=== PATIENT | male | born 1945 | race Caucasian/White ===

== ENCOUNTER → 2017-01-02 | Outpatient (CLI) | payer MEDICARE ==
[2017-01-02 14:27] LABS: ALT 75 U/L (21-72); AST 67 U/L (17-59); Alkaline Phosphatase 87 U/L (38-126); Anion Gap 13 mmol/L; Blood Urea Nitrogen 16 mg/dL (9-20); Calcium 9.1 mg/dL (8.4-10.2); Carbon Dioxide 20 mmol/L (22-30); Chloride 107 mmol/L (98-107); Cholesterol 120 mg/dL (<200); Glucose 135 mg/dL (74-99); HDL Cholesterol 42 mg/dL (40-60); Non-African American GFR(MDRD) >60 (>60 ml/min/1.73 sqM); Potassium 3.7 mmol/L (3.5-5.1); Sodium 140 mmol/L (137-145); Total Bilirubin 1.6 mg/dL (0.2-1.3); Total Protein 7.4 g/dL (6.3-8.2); Triglycerides 150 mg/dL (<150)
[2017-01-02 14:29] LABS: Basophils % (A) 0 %; CH 32.7; CHCM 35.9; Eosinophils # (A) 0.2 k/uL (0-0.7); Eosinophils % (A) 3 %; HCT 40.4 % (39.0-53.0); HDW 3.13; HGB 14.6 gm/dL (13.0-17.5); Luc # (Auto) 0.27; Luc % (Auto) 4; Lymphocytes # (A) 1.4 k/uL (1.0-4.8); Lymphocytes % (A) 21 %; MCH 33.3 pg (25.0-35.0); MCHC 36.3 g/dL (31.0-37.0); MCV 91.8 fL (80.0-100.0); Mean Platelet Volume 7.5; Monocytes # (A) 0.4 k/uL (0-1.0); Monocytes % (A) 6 %; Neutrophils # (A) 4.5 k/uL (1.3-7.7); Neutrophils % (A) 66 %; RDW 14.8 % (11.5-15.5); WBC 6.8 k/uL (3.8-10.6); WBC (Perox) 7.04
[2017-01-02 14:36] LABS: INR 1.2 (<1.1); Prothrombin Time 11.8 sec (9.0-12.0)
== END | disposition home or self-care (01) ==
LOC: LABWHC1 13:44
PROVIDERS: ATTEND Internal Medicine Gastroenterology
DX: E78.5 Hyperlipidemia, unspecified (principal); K74.60 Unspecified cirrhosis of liver; I73.9 Peripheral vascular disease, unspecified
CPT/HCPCS: 36415; 80053; 80061; 82105; 85025; 85610

== ENCOUNTER 2017-02-26 08:10 | Day surgery (SDC) | payer MEDICARE ==
[2017-02-20 14:55] VITALS: BMI 24.7
[~2017-02-26 08:10] MED LIST: ALPRAZolam 0.25 MG TAB PO PRN; ASPIRIN 325 MG TAB PO STA; SODIUM CHLORIDE 0.9% 1,000 ML in EMPTY BAG 1 BAG IV ONE
[2017-02-26] MEDS ORDERED: SODIUM CHLORIDE 0.9% 1,000 ML IV ONE (08:30)
[2017-02-26] MEDS ORDERED: ASPIRIN 81 MG CHEW ONE (08:39)
[2017-02-26 08:40] LABS: Glucose,Whole Blood 132 mg/dL (75-99)
[2017-02-26 08:54] LABS: Basophils % (A) 0 %; CH 32.3; CHCM 35.6; Eosinophils # (A) 0.2 k/uL (0-0.7); Eosinophils % (A) 3 %; HCT 40.8 % (39.0-53.0); HDW 2.93; HGB 14.7 gm/dL (13.0-17.5); Luc # (Auto) 0.14; Luc % (Auto) 2; Lymphocytes # (A) 1.3 k/uL (1.0-4.8); Lymphocytes % (A) 21 %; MCH 32.9 pg (25.0-35.0); MCHC 36.1 g/dL (31.0-37.0); MCV 91.2 fL (80.0-100.0); Monocytes # (A) 0.4 k/uL (0-1.0); Monocytes % (A) 7 %; Neutrophils # (A) 4.2 k/uL (1.3-7.7); Neutrophils % (A) 67 %; RBC 4.47 m/uL (4.30-5.90); RDW 13.9 % (11.5-15.5); WBC 6.2 k/uL (3.8-10.6); WBC (Perox) 6.37
[2017-02-26 09:04] LABS: Anion Gap 11 mmol/L; Blood Urea Nitrogen 16 mg/dL (9-20); Calcium 8.9 mg/dL (8.4-10.2); Carbon Dioxide 21 mmol/L (22-30); Chloride 109 mmol/L (98-107); Glucose 133 mg/dL (74-99); Non-African American GFR(MDRD) >60 (>60 ml/min/1.73 sqM); Potassium 3.7 mmol/L (3.5-5.1); Sodium 141 mmol/L (137-145)
[2017-02-26] MEDS: MIDAZOLAM 2 MG/2 ML VIAL IV ONE ×2 (11:38→11:43)
[2017-02-26] MEDS ORDERED: LIDOCAINE 2% INJ 20 MG/ML SQ ONE (11:40)
[2017-02-26] MEDS ORDERED: HEPARIN SODIUM 1,000 UN/ML (10ML VL) IV ONE (11:50)
[2017-02-26] MEDS ORDERED: CLOPIDOGREL 75 MG TAB PO ONE (12:25)
[2017-02-26] MEDS ORDERED: ENALAPRILAT 1.25 MG/ML 1 ML VIAL IV ONE (12:37)
[2017-02-26] MEDS ORDERED: hydrALAZINE HCL 20 MG/ML 1 ML VIAL IV ONE (12:41)
[2017-02-26] MEDS ORDERED: PROTAMINE SULFATE 10 MG/ML 5 ML VIAL IV ONE (12:44)
[2017-02-26] MEDS ORDERED: SODIUM CHLORIDE 0.9% 1,000 ML IV SCH (12:45)
[2017-02-26] MEDS ORDERED: IODIXANOL 320 MG/ML 100 ML INTRAARTER ONE (12:50)
--- NOTE | 2017-02-26 13:32 | IR ---
Fluoroscopy HISTORY: Subclavian artery stenosis 14.4 minutes fluoroscopy time supplied to the referring clinician. 201 intraoperative C-arm images d ocument the procedure. See dictated report from cardiology.
[2017-02-26 17:15] LABS: Glucose,Whole Blood 179 mg/dL (75-99)
[2017-02-26 21:09] LABS: Glucose,Whole Blood 112 mg/dL (75-99)
[2017-02-26] MEDS ORDERED: HYDROcodone/APAP 7.5-325MG 1 EACH TAB PO PRN (23:33)
[2017-02-26] MEDS ORDERED: ZOLPIDEM 10 MG TAB PO SCH (23:45)
[2017-02-26] MEDS ORDERED: ATORVASTATIN 40 MG TAB PO SCH (23:45)
[2017-02-27] MEDS: hydrALAZINE HCL 20 MG/ML 1 ML VIAL IVP PRN ×2 (00:12→03:27)
[2017-02-27 03:36] LABS: Basophils % (A) 0 %; CH 33.4; CHCM 35.6; Eosinophils # (A) 0.2 k/uL (0-0.7); Eosinophils % (A) 2 %; HCT 44.2 % (39.0-53.0); HDW 2.92; HGB 14.5 gm/dL (13.0-17.5); Luc # (Auto) 0.14; Luc % (Auto) 2; Lymphocytes # (A) 1.1 k/uL (1.0-4.8); Lymphocytes % (A) 13 %; MCHC 32.9 g/dL (31.0-37.0); MCV 94.4 fL (80.0-100.0); Monocytes # (A) 0.6 k/uL (0-1.0); Monocytes % (A) 7 %; Neutrophils # (A) 6.3 k/uL (1.3-7.7); Neutrophils % (A) 76 %; RBC 4.68 m/uL (4.30-5.90); WBC 8.2 k/uL (3.8-10.6); WBC (Perox) 8.41
[2017-02-27 03:42] LABS: Non-African American GFR(MDRD) >60 (>60 ml/min/1.73 sqM)
[2017-02-27 04:20] LABS: Manual Review Performed
[2017-02-27 05:46] LABS: Glucose,Whole Blood 150 mg/dL (75-99)
[2017-02-27 06:15] LABS: Anion Gap 14 mmol/L; Blood Urea Nitrogen 18 mg/dL (9-20); Calcium 8.8 mg/dL (8.4-10.2); Carbon Dioxide 17 mmol/L (22-30); Chloride 110 mmol/L (98-107); Glucose 117 mg/dL (74-99); Potassium 3.5 mmol/L (3.5-5.1); Sodium 141 mmol/L (137-145)
[2017-02-27 08:20] VITALS: RESP 18
[2017-02-27] MEDS ORDERED: LOSARTAN 50 MG TAB PO SCH (09:00)
[2017-02-27] MEDS ORDERED: MULTIVITAMINS, THERA 1 EACH TAB PO SCH (09:00)
[2017-02-27] MEDS ORDERED: ASPIRIN 81 MG CHEW PO SCH (09:00)
[2017-02-27] MEDS ORDERED: NON-FORMULARY DRUG (Canagliflozin [Invokana] 300 MG) PO SCH (09:00)
[2017-02-27] MEDS ORDERED: NON-FORMULARY DRUG (Metformin Hcl [Glucophage] 1,000 MG) PO SCH (09:00)
[2017-02-27] MEDS ORDERED: CHOLECALCIFEROL 1,000 UNIT TAB PO SCH (09:00)
[2017-02-27] MEDS ORDERED: CLOPIDOGREL 75 MG TAB PO SCH (09:00)
--- NOTE | 2017-02-27 09:51 | US ---
EXAMINATION TYPE: US lower ext pseudo artery RT DATE OF EXAM: 02/27/2017 COMPARISON: NONE CLINICAL HISTORY: r/o pseudoaneurysm. Right groin pain EXAM PERFORMED: Grayscale and color Doppler duplex imaging performed of the groin, post cardiac harriet ter to assess for pseudoaneurysm. SIDE PERFORMED: Right Color and Waveform Doppler performed to assess for the presence of pseudoaneurysm; Is there ultrasound evidence of a pseudoaneurysm: no Is there evidence of AV shunting: no Is there a fluid collection present: no Heart cath less than 24 hours previous, patient has pain, swelling and bruising at right groin. IMPRESSION: No evident pseudoaneurysm or arteriovenous fistula
[2017-02-27 11:46] LABS: Glucose,Whole Blood 166 mg/dL (75-99)
[2017-02-27 12:01] VITALS: BP 146/69; PULSE 85; TEMP 96.6
--- NOTE | 2017-02-27 13:06 | P.DS ---
Providers Date of admission: February 262016 Attending physician: Thad Mayorga Primary care physician: [place] Hospital Course: This is a pleasant 72-year-old gentleman who was diagnosed with a steal syndrome. He was admitted to the hospital yesterday and underwent an aortic arch angiogram along with selective left subclavian angiogram along with successful stenting of the proximal left subclavian artery using balloon expandable stent with a good angiographic results. The procedure was complicated by right groin hematoma after the failure of groin closure device. The hematoma was reduced completely with compression. Subsequently he underwent an ultrasound of the right groin which showed no evidence of pseudoaneurysm or DVT. The patient is going to be discharged home on dual antiplatelet therapy and statin and I'll follow-up with the patient next week in the office. Plan - Discharge Summary New Discharge Prescriptions: New Clopidogrel [Plavix] 75 mg PO DAILY #30 tab Continue Cholecalciferol (Vitamin D3) [Vitamin D3] 2,000 unit PO DAILY Zolpidem [Ambien] 10 mg PO HS HYDROcodone/APAP 7.5-325MG [[place] 7.5-325] 1 tab PO TID PRN PRN Reason: NEUROPATHY PAIN Aspirin [Adult Low Dose Aspirin EC] 81 mg PO DAILY Irbesartan [Avapro] 150 mg PO DAILY Atorvastatin [Lipitor] 40 mg PO HS metFORMIN HCL [Glucophage] 1,000 mg PO BID Canagliflozin [Invokana] 300 mg PO DAILY Prostaleaf (Unsure Dose) 1 tab PO BID Multivitamin [Men's Multi-Vitamin] 1 each PO DAILY Discharge Medication List Aspirin [Adult Low Dose Aspirin EC] 81 mg PO DAILY 02/20/17 [History] Atorvastatin [Lipitor] 40 mg PO HS 02/20/17 [History] Canagliflozin [Invokana] 300 mg PO DAILY 02/20/17 [History] Cholecalciferol (Vitamin D3) [Vitamin D3] 2,000 unit PO DAILY 02/20/17 [History] HYDROcodone/APAP 7.5-325MG [[place] 7.5-325] 1 tab PO TID PRN 02/20/17 [History] Irbesartan [Avapro] 150 mg PO DAILY 02/20/17 [History] Multivitamin [Men's Multi-Vitamin] 1 each PO DAILY 02/20/17 [History] Prostaleaf (Unsure Dose) 1 tab PO BID 02/20/17 [History] Zolpidem [Ambien] 10 mg PO HS 02/20/17 [History] metFORMIN HCL [Glucophage] 1,000 mg PO BID 02/20/17 [History] Clopidogrel [Plavix] 75 mg PO DAILY #30 tab 02/27/17 [Rx] Follow up Appointment(s)/Referral(s): Thad Mayorga MD [STAFF PHYSICIAN] - 1 Week (will call with appointment date and time) Patient Instructions/Handouts: *Surgery [facility] - After Heart Catheterization - Wood Molder Instructions
--- NOTE | 2017-02-27 14:05 | AN ---
AORTIC ARCH AND LEFT SUBCLAVIAN STENTING: DATE OF SERVICE: 02/26/2017 PERFORMING PHYSICIAN: TRE WILLIAM MD, CARPENTER PROCEDURE PERFORMED: 1. An aortic arch angiogram. 2. Selective left subclavian angiogram. 3. Successful stenting of the proximal left subclavian using 8.0 x 19 mm balloon expandible stent with a good angiographic results. INDICATION: This is a pleasant 71-year-old gentleman who sees Dr. Khurram Cronin as an outpatient who was thought to have reversal flow in the left vertebral artery by Duplex study. The patient was found to have very diminished left radial pulse with left arm discomfort. Severe left subclavian stenosis was suspected and the patient was brought today to undergo an angiogram. APPROACH: Right common femoral artery. COMPLICATION: None. LEVEL OF SEDATION: Moderate. PROCEDURE DESCRIPTION: After obtaining an informed consent, the patient was brought to the Cardiac Manager Patient. The right common femoral artery was cannulated using micropuncture technique. The micropuncture wire passed easily. Then I placed a 6 [place] sheath in the right common femoral artery. Subsequently, I did an aortic arch angiogram using 5 [place] Pigtail catheter. After that, I did selective left subclavian angiograph using 5 [place] Juan Daniel Right catheter. Then I did intervene on the left subclavian. Please see a separate paragraph for that. SELECTIVE PERIPHERAL ANGIOGRAM: 1. The aortic arch is a type 1 arch and seems to be angiographically normal without dissection or aneurysmal dilatation. 2. The subclavian has fairly tight lesion in the proximal portion, seems to be eccentric and seems to be in the range of 80% to 90%. 3. Left subclavian stenting anticoagulation was initiated using heparin and the patient was given a weight-based heparin of a total of 8,000 units. Subsequently, I did exchange my 11 cm sheath into a 90 cm sheath using an 0.035 Advantage wire which was advanced through the distal left subclavian. Subsequently, I did CHAIN BUILDER ballooning 6.0 x 20 mm balloon. After that, I deployed 8.0 x 19 mm stent where the stent was positioned under fluoroscopic guidance and deployed under it nominal pressure. The following angiograph showed excellent angiographic results and the patient has excellent left radial pulse by the end of the procedure. POSTPROCEDURE MANAGEMENT: 1. Dual antiplatelet therapy. 2. Risk factor modifications. 3. Follow up with the patient. [place]
== END 2017-02-27 13:45 | disposition home or self-care (01) ==
LOC: CATHCVL 08:10 → 6SEL 12:44 → CATHCVL 02-27 13:45
PROVIDERS: ATTEND Internal Medicine Interventional Cardiology
DX: G45.8 Other transient cerebral ischemic attacks and related syndromes (principal); L76.32 Postprocedural hematoma of skin and subcutaneous tissue following other procedure; I10 Essential (primary) hypertension; E78.5 Hyperlipidemia, unspecified; I73.9 Peripheral vascular disease, unspecified; E11.40 Type 2 diabetes mellitus with diabetic neuropathy, unspecified; K74.60 Unspecified cirrhosis of liver; G47.30 Sleep apnea, unspecified; Z87.891 Personal history of nicotine dependence; Z79.899 Other long term (current) drug therapy; Z79.84 Long term (current) use of oral hypoglycemic drugs; Z79.82 Long term (current) use of aspirin
CPT/HCPCS: 80048; 85025; 93975

== ENCOUNTER → 2017-06-04 | Outpatient (CLI) | payer MEDICARE ==
[2017-06-05 12:14] LABS: Alternaria alternata IgE <0.35 kU/L (<0.35); Asperg. fumagatus IgE <0.35 kU/L (<0.35); Asperg. fumagatus IgE Class CLASS 0; Aureo. pullulans IgE <0.35 kU/L (<0.35); Birch(Com.Silvr) IgE Class CLASS 0; Candida albicans IgE Class CLASS 0; Clad herbarum IgE <0.35 kU/L (<0.35); Clad herbarum IgE Class CLASS 0; Cow's Milk IgE Class CLASS 0; Egg White IgE <0.35 kU/L (<0.35); Epicoccum purpurascens Class CLASS 0; Epicoccum purpurascens IgE <0.35 kU/L (<0.35); Maple (Box Elder) IgE <0.35 kU/L (<0.35); Maple (Box Elder) IgE Class CLASS 0; Mucor racemosus IgE <0.35 kU/L (<0.35); Mucor racemosus IgE Class CLASS 0; Oak IgE <0.35 kU/L (<0.35); Peanut IgE <0.35 kU/L (<0.35); Potato IgE <0.35 kU/L (<0.35); Potato IgE Class CLASS 0; Rhizopus nigricans IgE <0.35 kU/L (<0.35); Rhizopus nigricans IgE Class CLASS 0; S.rostrata/Helminth Class CLASS 0; S.rostrata/Helminth IgE <0.35 kU/L (<0.35); Soybean IgE <0.35 kU/L (<0.35); Sycamore(Mpl.Lf) IgE <0.35 kU/L (<0.35); Sycamore(Mpl.Lf) IgE Class CLASS 0; Walnut Tree IgE <0.35 kU/L (<0.35); White Ash IgE Class CLASS 0
[2017-06-05 12:15] LABS: Cat Epith & Dander IgE <0.35 kU/L (<0.35); Cat Epith & Dander IgE Class CLASS 0; Com. Pigweed IgE <0.35 kU/L (<0.35); Com. Pigweed IgE Class CLASS 0; Common Ragweed IgE Class CLASS 0; Dermato. Pteronyssinus Class CLASS 0; Dermato. Pteronyssinus IgE <0.35 kU/L (<0.35); Dermato. farinae IgE <0.35 kU/L (<0.35); Dermato. farinae IgE Class CLASS 0; English Plantain IgE Class CLASS 0; Johnson Grass IgE Class CLASS 0; Lamb's Quarter IgE <0.35 kU/L (<0.35); Lamb's Quarter IgE Class CLASS 0; Timothy Grass IgE <0.35 kU/L (<0.35); Timothy Grass IgE Class CLASS 0
== END | disposition home or self-care (01) ==
LOC: LABWHC1 14:33
PROVIDERS: ATTEND Otolaryngology
DX: J30.89 Other allergic rhinitis (principal)
CPT/HCPCS: 36415; 86003

== ENCOUNTER → 2017-12-16 | Outpatient (CLI) | payer MEDICARE ==
[2017-12-16 15:25] LABS: INR 1.1 (<1.2); Prothrombin Time 10.8 sec (9.0-12.0)
[2017-12-16 15:28] LABS: ALT 69 U/L (21-72); AST 42 U/L (17-59); Albumin 4.6 g/dL (3.5-5.0); Alkaline Phosphatase 69 U/L (38-126); Anion Gap 15 mmol/L; Blood Urea Nitrogen 25 mg/dL (9-20); Carbon Dioxide 25 mmol/L (22-30); Chloride 102 mmol/L (98-107); Glucose 166 mg/dL (74-99); Potassium 4.5 mmol/L (3.5-5.1); Sodium 142 mmol/L (137-145); Total Bilirubin 1.5 mg/dL (0.2-1.3); Total Protein 7.3 g/dL (6.3-8.2)
--- NOTE | 2017-12-16 15:41 | US ---
EXAMINATION TYPE: US liver DATE OF EXAM: 12/16/2017 COMPARISON: NONE CLINICAL HISTORY: Cirrhosis of liver K74.60. Cirrhosis of liver EXAM MEASUREMENTS: Liver Length: 13.1 cm Gallbladder Wall: 0.2 cm CBD: 0.3 cm Right Kidney: 10.1 x 4.9 x 5.4 cm Technically difficult and limited study due to large amount of overlying bowel gas Pancreas: visualized portions appear hyperechoic Liver: heterogeneous without any definite lesions seen at this time Gallbladder: visualized portions wnl Evidence for sonographic Blackman's sign: no CBD: visualized portions wnl Right Kidney: visualized portions wnl IMPRESSION: Diffusely heterogenous hepatic echotexture relating to the patient's known underlying his tory of hepatocellular disease. No focal hepatic lesions are identified on today's exam.
[2017-12-16 15:45] LABS: Basophils % (A) 0 %; Eosinophils # (A) 0.2 k/uL (0-0.7); Eosinophils % (A) 2 %; HCT 48.2 % (39.0-53.0); HGB 16.5 gm/dL (13.0-17.5); Lymphocytes # (A) 1.5 k/uL (1.0-4.8); Lymphocytes % (A) 15 %; MCH 31.1 pg (25.0-35.0); MCHC 34.4 g/dL (31.0-37.0); MCV 90.5 fL (80.0-100.0); Mean Platelet Volume 7.4; Monocytes # (A) 0.6 k/uL (0-1.0); Monocytes % (A) 6 %; Neutrophils # (A) 7.3 k/uL (1.3-7.7); Neutrophils % (A) 75 %; RBC 5.32 m/uL (4.30-5.90); RDW 14.3 % (11.5-15.5); WBC 9.8 k/uL (3.8-10.6)
[2017-12-16 16:13] LABS: Platelet Count 81 k/uL (150-450)
== END | disposition home or self-care (01) ==
LOC: RADUSWWP 14:21
PROVIDERS: ATTEND Internal Medicine Gastroenterology
DX: K74.60 Unspecified cirrhosis of liver (principal)
CPT/HCPCS: 36415; 76705; 80053; 82105; 85025; 85610

== ENCOUNTER → 2019-08-28 | Outpatient (CLI) | payer MEDICARE ==
--- NOTE | 2019-08-29 16:32 | US ---
EXAMINATION TYPE: US liver DATE OF EXAM: 08/28/2019 COMPARISON: US CLINICAL HISTORY: K74.60 unspec cirrhosis of liver. Cirrhosis EXAM MEASUREMENTS: Liver Length: 12.5 cm Gallbladder Wall: 0.2 cm CBD: 0.5 cm Right Kidney: 8.9 x 4.9 x 4.2 cm Pancreas: Body wnl, head and tail obscured by overlying bowel gas Liver: Lobulated contour, left lobe enlarged, right lobe small in size Gallbladder: wnl Evidence for sonographic Blackman's sign: No CBD: wnl Right Kidney: Small in size when compared to previous, otherwise appeared wnl IMPRESSION: Lobulated hepatic contour is nonspecific. Mild prominence of the left hepatic lobe.
== END | disposition home or self-care (01) ==
LOC: RADUSWWP 16:14
PROVIDERS: ATTEND Internal Medicine Gastroenterology
DX: K76.89 Other specified diseases of liver (principal)
CPT/HCPCS: 76705

== ENCOUNTER → 2020-01-28 | Outpatient (CLI) | payer MEDICARE ==
--- NOTE | 2020-01-28 15:21 | US ---
EXAMINATION TYPE: US chest DATE OF EXAM: 01/28/2020 COMPARISON: NONE CLINICAL HISTORY: J90 pleural effusion. Right chest per order TECHNIQUE: Targeted ultrasound of the posterior lower right hemithorax EXAM MEASUREMENTS: Right Pleural Effusion pocket size: 3.6 cm Right skin surface to fluid distance: 2.7 cm Right side NOT marked for possible thoracentesis outside the dept due to small fluid pocket. Pulmonologists are able to review the images in the patient?s EMR. IMPRESSIONS: Small right pleural effusion
== END | disposition home or self-care (01) ==
LOC: RADUSWWP 14:54
PROVIDERS: ATTEND Internal Medicine Critical Care Medicine
DX: J90 Pleural effusion, not elsewhere classified (principal)
CPT/HCPCS: 76604

== ENCOUNTER → 2020-02-03 | Outpatient (CLI) | payer MEDICARE | END | disposition home or self-care (01) | CPT/HCPCS: 94060; 94726; 94729 ==

== ENCOUNTER → 2020-05-02 | Outpatient (CLI) | payer MEDICARE ==
--- NOTE | 2020-05-02 16:32 | MR ---
EXAMINATION TYPE: MR brain wo/w con DATE OF EXAM: 05/02/2020 COMPARISON: NONE HISTORY: Hx of high-grade lung Cancer, F/U TECHNIQUE: Multiplanar, multisequence images of the brain and brainstem is performed without and with IV contras t, utilizing 7.5 mL intravenous Gadavist . FINDINGS: Diffusion weighted images demonstrate no evidence of a recent infarct or other diffusion ab normality. There is no worrisome extra-axial fluid collection. Diffuse ventricular and sulcal promin ence is present. Occasional tiny focus of T2 hyperintense lesion. Less than 5 distinct lesions identi fied. Midline structures demonstrate normal morphology. The craniocervical junction appears within normal limits. Post contrast images demonstrate no abnormal enhancement. The dural venous sinuses appear pa tent. The visualized sinuses are clear and the globes are intact. IMPRESSION: [id number] diffuse cerebral atrophy. No suspicious enhancing masses to suggest meta static disease to the brain noted.
== END | disposition home or self-care (01) ==
LOC: RADMRIMAIN 15:15
PROVIDERS: ATTEND Radiology Radiation Oncology
DX: G31.9 Degenerative disease of nervous system, unspecified (principal); C34.31 Malignant neoplasm of lower lobe, right bronchus or lung; Z87.891 Personal history of nicotine dependence
CPT/HCPCS: 70553; A9585

== ENCOUNTER → 2020-05-02 | Outpatient (CLI) | payer MEDICARE ==
[2020-05-03 01:07] LABS: African American GFR (CKD) 95.8 (60.0-200.0); Anion Gap 7.2 mmol/L (4.00-12.00); BUN/Creat Ratio 16.67 Ratio (12.00-20.00); Calcium 8.3 mg/dL (8.7-10.3); Carbon Dioxide 24.8 mmol/L (21.6-31.8); Magnesium 1.9 mg/dL (1.5-2.4); Non-African American GFR(CKD) 82.7 (60.0-200.0)
== END | disposition home or self-care (01) ==
LOC: LABWHC1 14:57
PROVIDERS: ATTEND Nurse Practitioner
DX: I10 Essential (primary) hypertension (principal)
CPT/HCPCS: 36415; 80048; 83735

== ENCOUNTER → 2020-06-06 | Outpatient (CLI) | payer MEDICARE ==
[2020-06-06 14:36] LABS: African American GFR (CKD) >90 (>60 ml/min/1.73 sqM); Blood Urea Nitrogen 19 mg/dL (9-20); Non-African American GFR(CKD) 84 (>60 ml/min/1.73 sqM)
--- NOTE | 2020-06-07 12:49 | CT ---
EXAMINATION TYPE: CT chest wo/w con DATE OF EXAM: 06/06/2020 COMPARISON: PET CT 01/19/[address] chest 12/30/2019. 03/12/2016 HISTORY: 75-year-old male Right lower lobe lung cancer. TECHNIQUE: Contiguous axial scanning of the chest before and after the administration of 100ml mL of Isovue 300. Coronal/sagittal reconstructions performed. CT DLP: 581.4mGycm. Automatic exposure control utilized for a dose reduction. FINDINGS: The heart is upper limits of normal in size with LAD and RCA coronary artery calcifications. No peric ardial effusion. There are normal caliber with mild atherosclerotic arch calcifications. A stent is present within the proximal left subclavian artery. The vessel is patent. Conventional vessel branching anatomy. Large caliber to the main right and left pulmonary arteries measuring up to 2.7 cm suggesting underly ing pulmonary arterial hypertension. No thoracic lymphadenopathy by CT size criteria. Nonenlarged 5 mm in the window lymph node is unchang ed. Trace right pleural effusion remains, decreased in size from 01/19/2020. Residual subpleural mass posterior right lower lobe measuring up to 2.9 cm versus 6.4 cm on 12/30/2019 . COPD changes with advanced upper lung emphysema. No consolidation or pleural effusion. Focal irregular subpleural opacity anterior left upper lobe remains unchanged, probable pleural paren chymal scarring. This was also present in 2016. 4 mm peripheral right midlung nodularity, axial image 33 appears to have been present 5 months ago bu t not clearly seen in 2016. Attention on follow-up. Small hiatal hernia. Stable 8 mm hypodensity within the right hepatic dome, probable cyst. Redemonst rated splenomegaly at 16.5 cm and be correlated clinically. Bones: Mild degenerative disc disease mid to lower thoracic spine. No osseous destructive process. IMPRESSION: 1. Decreasing size of the subpleural posterior right basilar mass, currently measuring 2.9 cm versus 6.4 cm, previously. 2. Only a trace right effusion remains, decreased from 01/19/2020. 3. A 4 mm right midlung pulmonary nodule is nonspecific, stable from 5 months ago but not clearly see n in 2016. This can be reassessed at subsequent follow-ups. 4. COPD with advanced emphysema and pulmonary arterial hypertension. 5. Small hiatal hernia and stable splenomegaly at 16.5 cm.
== END | disposition home or self-care (01) ==
LOC: RADCTMAIN 13:47
PROVIDERS: ATTEND Radiology Radiation Oncology
DX: C34.31 Malignant neoplasm of lower lobe, right bronchus or lung (principal); R91.1 Solitary pulmonary nodule; I27.21 Secondary pulmonary arterial hypertension; J43.9 Emphysema, unspecified; K44.9 Diaphragmatic hernia without obstruction or gangrene; Z87.891 Personal history of nicotine dependence
CPT/HCPCS: 82565; 84520; 71270; 36415; Q9967

== ENCOUNTER → 2020-09-08 | Outpatient (CLI) | payer MEDICARE ==
[2020-09-08 15:55] LABS: African American GFR (CKD) >90 (>60 ml/min/1.73 sqM); Blood Urea Nitrogen 15 mg/dL (9-20); Non-African American GFR(CKD) 89 (>60 ml/min/1.73 sqM)
--- NOTE | 2020-09-09 07:34 | CT ---
EXAMINATION TYPE: CT ChestAbdPelvis w con DATE OF EXAM: 09/08/2020 COMPARISON: 06/06/2020 HISTORY: Lung ca. Pt c/o SOB, painful urination. CT DLP: 1140.10 mGycm CONTRAST: CT scan of the chest, abdomen and pelvis is performed with Oral Contrast and with IV Contrast, patien t injected with 100 mL of Isovue 300. CT Chest: LUNGS: Moderate right-sided pleural effusion is new. There is a new irregular infiltrates right lower lobe which may reflect recurrent mass. Neoplasm is not excluded. Coarse markings are seen about the right hilum could reflect post radiation therapy change. Severe emphysematous changes noted particula rly within the right upper lobe. There is biapical scarring identified. No additional nodules or mass es identified at this time. MEDIASTINUM: Thoracic aorta is of normal caliber. The heart is mildly enlarged. No evidence for me diastinal mass or adenopathy. HILAR STRUCTURES: No evidence for mass. No hilar adenopathy is appreciated. OTHER: No significant abnormality. CONTRAST CT ABDOMEN AND PELVIS FINDINGS: LIVER/GB: No calcified gallstones. Small cyst near the dome of the liver measuring [address] tr ee is of normal caliber. PANCREAS: No inflammation. No distinct mass. SPLEEN: The spleen is enlarged at 16.9 cm craniocaudal dimension. No lesion seen. ADRENALS: No nodule. No thickening. KIDNEYS/BLADDER: No hydronephrosis. No nephrolithiasis. No disctinct renal mass. BOWEL: Normal appendix. Normal bowel caliber. No inflammation. GENITAL ORGANS: No gross abnormality. LYMPH NODES: No greater than 1cm abdominal or pelvic lymph nodes are appreciated. AORTA: No significant abnormality. OSSEOUS STRUCTURES: No significant abnormality is seen. OTHER: Small amount of free fluid is seen within the pelvis. Fat-containing right inguinal hernia wit h a small amount of fluid. IMPRESSION: 1. Moderate to new right-sided pleural effusion with irregular infiltrate right lower lobe could refl ect a pneumonia or aspiration pneumonia however a recurrent mass is not excluded. Correlate with PET/ CT.
== END | disposition home or self-care (01) ==
LOC: RADCTMAIN 14:59
PROVIDERS: ATTEND Internal Medicine Hematology & Oncology
DX: C34.31 Malignant neoplasm of lower lobe, right bronchus or lung (principal); R06.02 Shortness of breath; R10.84 Generalized abdominal pain
CPT/HCPCS: 82565; 84520; 71260; 74177; 36415; Q9967

== ENCOUNTER → 2020-09-16 | Outpatient (CLI) | payer MEDICARE ==
--- NOTE | 2020-09-18 08:50 | PE ---
EXAMINATION TYPE: PET CT fusion skull to thigh DATE OF EXAM: 09/16/2020 COMPARISON: Most recent CT September 08, 2020. Prior outside PET/CT January 19, 2020. HISTORY: Right-sided lung cancer diagnosed December 2019 treated with chemotherapy and radiation treatmen t. TECHNIQUE: Following the intravenous administration of 9.95 mCi of F-18 FDG, whole body images are p erformed from the skull base to the midthigh. Images are reviewed on the computer in the coronal, ax ial, and sagittal planes. Reconstructed rotating images are created on independent workstation and r eviewed on the computer. A localization and attenuation correction CT is performed in conjunction w ith the PET scan. Blood glucose level equals 117. SCAN: Subsequent Scan FINDINGS: SKULL BASE AND NECK: No new areas of abnormal hypermetabolic uptake. CHEST, MEDIASTINUM, AND HILAR REGION: Redemonstration of ftvkz-jk-smbjswax size right pleural fluid c ollection which does not completely layer dependently larger from prior PET/CT. There is associated a telectasis and/or consolidation in the right hilar region extending inferiorly redemonstrated. No breezy picious hypermetabolic uptake identified to suggest active neoplastic recurrence. Prior focal right a nterior lower lobe hypermetabolic neoplasm likely corresponds to more rounded 2.8 x 1.7 cm structure no axial image 116 current study. No abnormal hypermetabolic uptake at this level on current study. ABDOMEN AND PELVIS: No areas of abnormal hypermetabolic uptake. OSSEOUS STRUCTURES: No areas of abnormal hypermetabolic uptake. OTHER CT: A stent in the left subclavian artery is present. Persistent cardiomegaly with coronary art fiona calcification. Asymmetric right-sided gynecomastia noted. Splenomegaly redemonstrated. Moderate amount of free fluid in pelvis again seen. No abnormal hypermet abolic uptake. Mildly enlarged prostate consistent with BPH. IMPRESSION: Persistent small to moderate size right pleural fluid collection. Associated atelectasis and/or consolidation. No new or residual hypermetabolic uptake to suggest active malignancy. Findings consistent with positive treatment response.
== END ==
LOC: RADPETMAIN 10:52
PROVIDERS: ATTEND Radiology Radiation Oncology
DX: C34.31 Malignant neoplasm of lower lobe, right bronchus or lung (principal)
CPT/HCPCS: 78815; A9552

== ENCOUNTER 2020-10-11 08:47 | Day surgery (SDC) | payer MEDICARE ==
[2020-10-11 09:47] LABS: Mean Platelet Volume 7.9
[2020-10-11 09:48] LABS: INR 1.1 (<1.2); Prothrombin Time 11.9 sec (9.0-12.0)
[2020-10-11 09:49] LABS: Platelet Count 79 k/uL (150-450)
[2020-10-11 10:44] VITALS: TEMP 98.1
[2020-10-11 10:54] VITALS: RESP 18
--- NOTE | 2020-10-11 11:40 | XR ---
EXAMINATION TYPE: XR chest 1V DATE OF EXAM: 10/11/2020 COMPARISON: 06/25/2011 INDICATION: Right thoracentesis TECHNIQUE: Single frontal view of the chest is obtained. FINDINGS: The heart size is normal. The pulmonary vasculature is normal. Right perihilar increased lung markings are present. Minimal right pleural effusion remains present. There may be some scarring in the right upper lobe. No pneumothorax is evident post thoracentesis. IMPRESSION: 1. No pneumothorax post right thoracentesis. 2. Residual right pleural effusion. 3. Mild increased lung markings right perihilar region.
[2020-10-11 11:58] VITALS: PULSE 94
[2020-10-11 11:59] VITALS: BP 132/72
--- NOTE | 2020-10-11 14:46 | US ---
EXAMINATION TYPE: US thoracentesis DATE OF EXAM: 10/11/2020 COMPARISON: PET/CT 09/16/2020 HISTORY: Pleural effusion. FINDINGS: Maximal barrier technique was utilized. The skin overlying a suitable pocket of fluid was localized and the overlying skin prepped and draped. Lidocaine was used for local anesthesia. Ultras ound was used with sterile technique. A 5 Polish catheter over guide needle was advanced into the pl eural fluid collection using ultrasound guidance the catheter advanced, needle removed. Approximatel y 0.7 liter(s) of serous fluid was removed. Catheter was withdrawn and hemostasis achieved. There i s no immediate complication. The patient discharged in stable condition without complication. Specim en obtained for laboratory analysis IMPRESSION: STATUS POST ULTRASOUND GUIDED THORACENTESIS, POST PROCEDURE CHEST X-RAY PENDING. THIS [place] OCEDURE WAS PERFORMED BY THE UNDERSIGNED.
== END 2020-10-11 11:45 | disposition home or self-care (01) ==
LOC: RADPROMAIN 08:47
PROVIDERS: ATTEND Internal Medicine Hematology & Oncology
DX: J90 Pleural effusion, not elsewhere classified (principal); C34.90 Malignant neoplasm of unspecified part of unspecified bronchus or lung; Z85.828 Personal history of other malignant neoplasm of skin
CPT/HCPCS: 32555; 36415; 71045; 82947; 85049; 85610; 88108; 88305

== ENCOUNTER → 2020-12-21 | Outpatient (CLI) | payer MEDICARE ==
--- NOTE | 2020-12-22 05:15 | MR ---
EXAMINATION TYPE: MR brain wo/w con DATE OF EXAM: 12/21/2020 COMPARISON: 05/02/2020 HISTORY: Lung cancer, altered mental status CONTRAST: Standard multiplanar, multisequence MRI departmental protocol utilizing 6.5 mL intravenous Gadavist g adolinium contrast. There is cerebral cortical atrophy. There is no mass effect nor midline shift. Diffusion images show no evidence of acute infarct. The brainstem is intact. Grade white matter structures have fairly norm al signal pattern. I see no evidence of any significant cerebral edema. There is minimal thinning of the corpus callosum. Sella turcica appears normal. The contrast images show no pathologic enhancement . There is normal enhancement of the venous sinuses. IMPRESSION: There is mild cerebral atrophy. No acute intracranial abnormality. No adverse change compared to old exam.
== END | disposition home or self-care (01) ==
LOC: RADMRIMAIN 13:07
PROVIDERS: ATTEND Internal Medicine Hematology & Oncology
DX: C34.90 Malignant neoplasm of unspecified part of unspecified bronchus or lung (principal); G31.9 Degenerative disease of nervous system, unspecified
CPT/HCPCS: 70553; A9585

== ENCOUNTER → 2020-12-23 | Outpatient (CLI) | payer MEDICARE ==
--- NOTE | 2020-12-26 07:45 | PE ---
EXAMINATION TYPE: PET CT fusion skull to thigh DATE OF EXAM: 12/23/2020 COMPARISON: Prior PET/CT September 16, 2020 and older studies HISTORY: Right-sided lung cancer diagnosed December 2019 treated with chemotherapy and radiation treatmen t. TECHNIQUE: Following the intravenous administration of 12.72 mCi of F-18 FDG, whole body images are performed from the skull base to the midthigh. Images are reviewed on the computer in the coronal, a xial, and sagittal planes. Reconstructed rotating images are created on independent workstation and reviewed on the computer. A localization and attenuation correction CT is performed in conjunction with the PET scan. Blood glucose level equals 101. SCAN: Subsequent Scan FINDINGS: SKULL BASE AND NECK: No new areas of abnormal hypermetabolic uptake. CHEST, MEDIASTINUM, AND HILAR REGION: Redemonstration of fcnfn-ok-xraaigow size right pleural fluid c ollection which does not completely layer dependently slightly smaller from most recent prior PET/CT. There is associated atelectasis and/or consolidation in the right hilar region extending inferiorly redemonstrated. No suspicious hypermetabolic uptake identified to suggest active neoplastic recurrenc e. Prior focal right anterior lower lobe hypermetabolic neoplasm could corresponds to more rounded 1.7 c m structure on axial image 108 current study. No abnormal hypermetabolic uptake at this level on curr ent study. No new areas of abnormal hypermetabolic uptake. ABDOMEN AND PELVIS: No areas of abnormal hypermetabolic uptake. OSSEOUS STRUCTURES: No areas of abnormal hypermetabolic uptake. OTHER CT: A stent in the left subclavian artery is present. Persistent cardiomegaly with coronary art fiona calcification. Asymmetric right greater than left gynecomastia is redemonstrated. Persistent splenomegaly. No significant ascites currently. Mildly enlarged prostate consistent with B PH is redemonstrated. IMPRESSION: Persistent small to moderate size right pleural fluid collection. Associated atelectasis and/or consolidation. No new or residual hypermetabolic uptake to suggest active malignancy. Findings consistent with complete positive treatment response.
== END | disposition home or self-care (01) ==
LOC: RADPETMAIN 11:49
PROVIDERS: ATTEND Radiology Radiation Oncology
DX: C34.31 Malignant neoplasm of lower lobe, right bronchus or lung (principal); Z92.21 Personal history of antineoplastic chemotherapy; Z92.3 Personal history of irradiation
CPT/HCPCS: 78815; A9552

== ENCOUNTER → 2021-03-13 | Outpatient (CLI) | payer MEDICARE ==
[2021-03-13 13:30] LABS: African American GFR (CKD) >90 (>60 ml/min/1.73 sqM); Blood Urea Nitrogen 11 mg/dL (9-20); Non-African American GFR(CKD) >90 (>60 ml/min/1.73 sqM)
--- NOTE | 2021-03-13 14:32 | CT ---
EXAMINATION TYPE: CT chest w con DATE OF EXAM: 03/13/2021 COMPARISON: Most recent CT September 08, 2020 and older CTs. Most recent PET/CT December 23, 2020 and olde r PET CTs HISTORY: Malignant neoplasm lower lobe, right bronchus. CT DLP: 230 mGycm. Automated Exposure Control for Dose Reduction was Utilized. TECHNIQUE: CT scan of the thorax is performed following with IV Contrast, patient injected with 100 mL of Isovue M300. FINDINGS: LUNGS: That will moderate to advanced underlying emphysematous change greatest in the upper lungs is redemonstrated. Persistent slightly more prominent small to moderate-sized right pleural effusion. As sociated right basilar compressive atelectasis and treated neoplasm redemonstrated. Some right-sided volume loss again seen with mediastinal shift. New small to tiny left pleural effusion. No new nodule s or masses clearly seen. MEDIASTINUM: There is stable nonspecific prominent 1.4 x 0.7 cm prevascular lymph node axial image 25 . No new greater than 1 cm thoracic adenopathy. Stable cardiomegaly with moderate biatrial dilatation . Coronary artery calcification redemonstrated. No pericardial effusion is seen. Stent graft in the left subclavian artery redemonstrated . Narrowing approaching 50% in the proximal left common carotid artery is stable. OTHER: Asymmetric right-sided subareolar gynecomastia again seen. Prominent spleen redemonstrated. Ne w small amount of perihepatic, perigastric, and perisplenic ascites on current study. Stable hypoden se subcentimeter lesion right hepatic dome on axial image 50. Exaggerated kyphosis with mild to moder ate multilevel spurring in the spine. IMPRESSION: Small to moderate-sized right pleural effusion slightly more prominent and new small to t iny left pleural effusion with new small amount of intra-abdominal ascites. Other findings stable wit h chronic emphysematous and posttreatment changes right lung. No new mass or adenopathy clearly seen.
== END | disposition home or self-care (01) ==
LOC: RADCTMAIN 12:51
PROVIDERS: ATTEND Radiology Radiation Oncology
DX: C34.31 Malignant neoplasm of lower lobe, right bronchus or lung (principal); J90 Pleural effusion, not elsewhere classified; J43.9 Emphysema, unspecified; Z87.891 Personal history of nicotine dependence; Z92.21 Personal history of antineoplastic chemotherapy
CPT/HCPCS: 82565; 84520; 71260; 36415; Q9967

== ENCOUNTER 2021-03-28 11:39 | Day surgery (SDC) | payer MEDICARE ==
[2021-03-28 12:11] VITALS: TEMP 98.5
[2021-03-28 13:10] VITALS: BP 121/73; PULSE 80; RESP 20
--- NOTE | 2021-03-28 13:12 | P.PCN ---
Date of Procedure: 03/28/21 Preoperative Diagnosis: Right-sided pleural effusion Postoperative Diagnosis: Right-sided pleural effusion Procedure(s) Performed: Right-sided thoracentesis Anesthesia: local Surgeon: Idalia Roth Estimated Blood Loss (ml): 0 Pathology: other Condition: stable Disposition: same day Operative Findings: A time out was performed and the chest x-ray was reviewed, the appropriate side was confirmed and marked. My hands were washed immediately prior to the procedure. I wore a surgical cap, mask with protective eyewear, sterile gown and sterile gloves throughout the procedure. The patient was prepped and draped in a sterile manner using chlorhexidine scrub after the appropriate level was percussed and confirmed by ultrasound. 1% lidocaine was used to anesthesize the skin, subcutaneous tissue, superior aspect of the rib periosteum and parietal pleura. A finder needle was then introduced over the superior aspect of the rib to locate the pleural fluid; 2colored fluid was aspirated at a depth of approximately 2 cm. A 10-blade scalpel was used to tuan the skin at the inser tion site. The Ntdr-y-Ezalwune needle was then introduced through the skin incision into the pleural space using negative aspiration pressure and the red colometric indicator to confirm appropriate positioning of the needle. The thoracentesis catheter was then threaded without difficulty. 900 ml of turbid colored fluid was removed without difficulty. The catheter was then removed. No immediate complications were noted during the procedure. A post-procedure chest x-ray is pending at the time of this note. The fluid will be sent for studies. Estimated blood loss is 0cc
--- NOTE | 2021-03-28 13:32 | XR ---
EXAMINATION TYPE: XR chest 1V portable DATE OF EXAM: 03/28/2021 COMPARISON: 03/27/2021 HISTORY: Pleural effusion TECHNIQUE: Single frontal view of the chest is obtained. FINDINGS: Bilateral infiltrate and pleural effusion. Heart enlarged. No pneumothorax. Arthropathy of the shoulders. Central venous congestion not excluded. Suspect underlying COPD. Hypertrophic and deg enerative change of the spine. IMPRESSION: Bilateral infiltrate and small effusion. Correlate for CHF or interstitial edema.
[2021-03-28 17:41] LABS: Color,BF Orange
[2021-03-28 17:42] LABS: Appearance,BF Hazy; Nucleated Cells, Body Fluid 110 /uL; RBC, Body Fluid 9530 /uL
[2021-03-28 17:43] LABS: Mononuclear WBC,Body Fluid 92 %; Polynuclear WBC,Body Fluid 7 %; Total Cells Counted,Body Fluid 100
[2021-03-29 01:28] LABS: Glucose, BF Source Pleural Fluid; Glucose, Body Fluid 152 mg/dL; LDH, Body Fluid Source Pleural Fluid
== END 2021-03-29 11:54 | disposition home or self-care (01) ==
LOC: PROCWHC3 11:39
PROVIDERS: ATTEND Internal Medicine Critical Care Medicine
DX: J90 Pleural effusion, not elsewhere classified (principal); E11.9 Type 2 diabetes mellitus without complications; E78.00 Pure hypercholesterolemia, unspecified; I11.0 Hypertensive heart disease with heart failure; I50.9 Heart failure, unspecified; C34.91 Malignant neoplasm of unspecified part of right bronchus or lung; J43.9 Emphysema, unspecified; Z92.21 Personal history of antineoplastic chemotherapy; Z87.891 Personal history of nicotine dependence; Z92.3 Personal history of irradiation
CPT/HCPCS: 32554; 71045; 82945; 83615; 84157; 87070; 87075; 87116; 87205; 87206; 88108; 88305; 89050

== ENCOUNTER → 2021-04-14 | Outpatient (CLI) | payer MEDICARE ==
--- NOTE | 2021-04-16 06:43 | PE ---
EXAMINATION TYPE: PET CT fusion skull to thigh DATE OF EXAM: 04/14/2021 COMPARISON: Prior PET/CT December 23, 2020 and older studies. Most recent CT March 13, 2021. HISTORY: Right-sided lung cancer diagnosed December 2019 treated with chemotherapy and radiation. TECHNIQUE: Following the intravenous administration of 12.47 mCi of F-18 FDG, whole body images are performed from the skull base to the midthigh. Images are reviewed on the computer in the coronal, a xial, and sagittal planes. Reconstructed rotating images are created on independent workstation and reviewed on the computer. A localization and attenuation correction CT is performed in conjunction with the PET scan. Blood glucose level equals 75 SCAN: Subsequent Scan FINDINGS: SKULL BASE AND NECK: No new areas of abnormal hypermetabolic uptake. CHEST, MEDIASTINUM, AND HILAR REGION: Redemonstration of [id number] size right pleural fluid c ollection which does not completely layer dependently slightly larger from most recent prior PET/CT. There is associated atelectasis and/or consolidation in the right hilar region extending inferiorly r edemonstrated. No suspicious hypermetabolic uptake identified to suggest active neoplastic recurrence . Background moderate to advanced underlying emphysematous change redemonstrated. No new areas of abnor mal hypermetabolic uptake. ABDOMEN AND PELVIS: No areas of abnormal hypermetabolic uptake. No new adrenal masses. New mild intra -abdominal ascites. OSSEOUS STRUCTURES: No areas of abnormal hypermetabolic uptake. OTHER CT: A stent in the left subclavian artery is present. Persistent cardiomegaly with coronary art fiona calcification. Asymmetric right greater than left gynecomastia is redemonstrated. Persistent splenomegaly. Recurrent moderate pelvic ascites. Mildly enlarged prostate consistent with BPH is redemonstrated. Right inguinal hernia containing ascites noted. IMPRESSION: Slightly larger small to moderate size right pleural fluid collection. Associated atelect asis and/or consolidation. No new hypermetabolic uptake to suggest active local or metastatic maligna ncy
== END | disposition home or self-care (01) ==
LOC: RADPETMAIN 11:57
PROVIDERS: ATTEND Internal Medicine Hematology & Oncology
DX: C34.31 Malignant neoplasm of lower lobe, right bronchus or lung (principal)
CPT/HCPCS: 78815; A9552

== ENCOUNTER → 2021-04-20 | Outpatient (CLI) | payer MEDICARE ==
[2021-04-20 15:47] LABS: Anisocytosis Slight; Basophils % (A) 1 %; Eosinophils # (A) 0.2 k/uL (0-0.7); Eosinophils % (A) 4 %; HCT 32.9 % (39.0-53.0); HGB 11.3 gm/dL (13.0-17.5); Hyperchromasia Slight; Lymphocytes # (A) 0.5 k/uL (1.0-4.8); Lymphocytes % (A) 9 %; MCH 30.9 pg (25.0-35.0); MCHC 34.4 g/dL (31.0-37.0); MCV 89.9 fL (80.0-100.0); Mean Platelet Volume 7.5; Monocytes # (A) 0.4 k/uL (0-1.0); Monocytes % (A) 7 %; Neutrophils # (A) 4.5 k/uL (1.3-7.7); Neutrophils % (A) 78 %; Poikilocytosis Moderate; RBC 3.65 m/uL (4.30-5.90); RDW 17.6 % (11.5-15.5); WBC 5.7 k/uL (3.8-10.6)
[2021-04-20 16:00] LABS: Potassium 3.3 mmol/L (3.5-5.1)
[2021-04-20 16:02] LABS: INR 1.2 (<1.2); Partial Thromboplastin Time 28.2 sec (22.0-30.0); Prothrombin Time 12.3 sec (9.0-12.0)
[2021-04-20 16:04] LABS: Platelet Count 72 k/uL (150-450)
== END | disposition home or self-care (01) ==
LOC: LABPAT 14:38
PROVIDERS: ATTEND Thoracic Surgery (Cardiothoracic Vascular Surgery)
DX: Z01.812 Encounter for preprocedural laboratory examination (principal); J90 Pleural effusion, not elsewhere classified
CPT/HCPCS: 36415; 80051; 82947; 85025; 85610; 85730; 93005

== ENCOUNTER 2021-04-26 10:22 | Day surgery (SDC) | payer MEDICARE ==
--- NOTE | 2021-04-20 16:36 | CONS ---
CONSULTATION Mr. Franks is a 76-year-old gentleman who has known carcinoma of the right lung. He has been treated with radiation and chemotherapy. He developed right pleural effusion. This has been tapped twice. The cytologies have been negative. The most recent PET scan demonstrates some uptake residually in the lung, but no evidence of active distal disease. Because of recurrent pleural effusion and shortness of breath, the patient has been on home oxygen therapy. His performance status is very poor. He is referred for PleurX catheter placement by Dr. Vasquez. PHYSICAL EXAM: Demonstrates an elderly chronically ill-appearing gentleman in no distress. Pupils are equal and reactive to light. Extraocular motions are intact. Lung kumar are decreased at the right base posteriorly, otherwise clear. Heart rate and rhythm are regular. Abdomen: Soft and nontender. X-RAY: Chest x-ray demonstrates right pleural effusion. PET scan also demonstrates a large right pleural effusion. RECOMMENDATION: Is for PleurX catheter. The indications for the procedure were discussed. The usual perioperative course was outlined. The patient, and his had many questions. These were answered to the best of my ability. They were very concerned about pain, discomfort, etc. They were reassured that a PleurX catheter is generally a very well- tolerated device. They wish to have it done as soon as possible. We will try to have it scheduled sometime next week. It is a right PleurX catheter. MMODL / IJN: [id number] /
[2021-04-25 10:07] VITALS: BMI 24.7
[2021-04-26] MEDS ORDERED: LACTATED RINGERS 1,000 ML IV ONE (11:00)
[2021-04-26 11:07] LABS: Glucose,Whole Blood 88 mg/dL (75-99)
[2021-04-26 11:08] VITALS: TEMP 98
[2021-04-26] MEDS ORDERED: MIDAZOLAM 2 MG/2 ML VIAL ONE (11:58)
[2021-04-26] MEDS ORDERED: PROPOFOL 10 MG/ML 20 ML VIAL IV ONE (11:58)
[2021-04-26] MEDS ORDERED: KETAMINE 10 MG/ML 20 ML VIAL ONE (11:58)
[2021-04-26] MEDS ORDERED: fentaNYL (PF) 50 MCG/ML 2 ML AMP ONE (11:58)
[2021-04-26] MEDS ORDERED: LIDOCAINE 1%-EPI 1:100,000 20 ML VIAL SQ ONE (12:41)
[2021-04-26] MEDS ORDERED: HYDROmorphone 0.5 MG/0.5 ML SYRINGE IVP PRN (12:52)
[2021-04-26] MEDS ORDERED: LIDOCAINE 1% (10MG/ML) FOR IV START INTRADERMA PRN (12:52)
[2021-04-26] MEDS ORDERED: ONDANSETRON 4 MG/2 ML VIAL IVP ONE (12:52)
[2021-04-26] MEDS ORDERED: LACTATED RINGERS 1,000 ML IV SCH (12:52)
[2021-04-26] MEDS ORDERED: MIDAZOLAM 2 MG/2 ML VIAL IV PRN (12:52)
[2021-04-26] MEDS ORDERED: DEXAMETHASONE SOD PHOSPHATE 4 MG/ML 1 ML VIAL IV ONE (12:52)
--- NOTE | 2021-04-26 12:52 | FL ---
EXAMINATION TYPE: FL chest tube insertion DATE OF EXAM: 04/26/2021 COMPARISON: NONE HISTORY: Fluoroscopy TECHNIQUE: Fluoroscopy. FINDINGS: Fluoroscopic guidance was provided during procedure of 2 seconds. IMPRESSION: As Above.
--- NOTE | 2021-04-26 12:54 | P.OP ---
Date of Procedure: 04/26/21 Preoperative Diagnosis: Recurrent right pleural effusion, history of lung cancer Postoperative Diagnosis: Same Procedure(s) Performed: Right Pleurx catheter placement with fluoroscopic guidance Implants: Pleurx catheter Anesthesia: MAC Social Services Specialist #1: Michael Humphreys Estimated Blood Loss (ml): 1 IV fluids (ml): 200 Pathology: other (Right pleural fluid for cytology) Condition: stable Disposition: PACU Indications for Procedure: 76-year-old very frail gentleman with history of lung cancer status post chemoradiation presents with recurrent right pleural effusion. This is been tapped 3 times previously. He is quite short of breath. Pleurx catheter was indicated for control pleural effusion and palliation of shortness of breath. Operative Findings: Successfully drained approximately 1500 mL of initially serous and subsequently somewhat bloody pleural fluid. On completion fluoroscopy demonstrated trapping of the right lower lobe with loculated right lower pneumothorax. Description of Procedure: Patient was brought to the operating room and placed supine on the table. Left arm was tucked at his side and the right arm was placed out on an arm board. The right lateral chest and right upper quadrant of the abdomen were sterilely prepped and draped. After appropriate timeout the chest was percussed and the area of fluid was identified. 2% lidocaine local was used. Puncture of the pleural space confirming fluid placement was performed in the seventh interspace in the midaxillary line. 18-gauge needle was then placed here and the guidewire threaded into the right pleural space under fluoroscopic guidance. Needle was removed and the guidewire left in place. After lidocaine anesthesia counterincision was made in the right upper quadrant. The site of the wire exit was enlarged with a knife. Pleurx catheter was tunneled from the right upper quadrant to the entry site and the cuff was positioned just under the skin at the exit site. Introducer and dilator were placed over the guidewire and through the introducer sheath the Pleurx catheter was introduced into the chest. It was connected to suction. Introducer sheath was removed. Entry site was closed with a 4-0 Vicryl subcuticular stitch. Skin glue was applied. Catheter was secured at the exit site with a 2-0 silk suture in a standard Pleurx dressing was applied. Patient was transferred to recovery in stable condition.
[2021-04-26 13:13] VITALS: RESP 16
--- NOTE | 2021-04-26 13:22 | XR ---
EXAMINATION TYPE: XR chest 1V portable DATE OF EXAM: 04/26/2021 COMPARISON: NONE HISTORY: Chest tube placement TECHNIQUE: Single frontal view of the chest is obtained. FINDINGS: Right-sided chest tube is seen and there is interval removal of fluid, however, there is a right-sided pneumothorax measuring approximately 30%. No mediastinal deviation. Coarsened interstitium suggests chronic interstitial lung disease. Atherosclerotic change aorta. Diff use osteopenia. Could not exclude a nodule in the left apex of the lung. Biapical pleural thickening. IMPRESSION: 1. Interval removal of pleural fluid with pneumothorax measuring approximately 30% 2. Correlate for pulmonary fibrosis.
[2021-04-26 13:32] VITALS: BP 131/69; PULSE 86
== END 2021-04-26 14:18 | disposition home health service (06) ==
LOC: OR 10:22
PROVIDERS: ATTEND Thoracic Surgery (Cardiothoracic Vascular Surgery)
DX: J90 Pleural effusion, not elsewhere classified (principal); C34.91 Malignant neoplasm of unspecified part of right bronchus or lung; Z87.891 Personal history of nicotine dependence; G47.33 Obstructive sleep apnea (adult) (pediatric); K21.9 Gastro-esophageal reflux disease without esophagitis; F41.9 Anxiety disorder, unspecified; F32.9 Major depressive disorder, single episode, unspecified; E11.9 Type 2 diabetes mellitus without complications; E78.5 Hyperlipidemia, unspecified; I10 Essential (primary) hypertension; J44.9 Chronic obstructive pulmonary disease, unspecified; Z97.2 Presence of dental prosthetic device (complete) (partial); R16.1 Splenomegaly, not elsewhere classified; Z98.890 Other specified postprocedural states; Z79.84 Long term (current) use of oral hypoglycemic drugs; Z79.51 Long term (current) use of inhaled steroids; Z79.899 Other long term (current) drug therapy; Z88.8 Allergy status to other drugs, medicaments and biological substances
CPT/HCPCS: 32550; 88108; 88305; 75989; 71045; J2250; J0690; J3010; J2704; 32551; 76000